=== PATIENT | male | born 1955 | race Caucasian/White ===

== ENCOUNTER 2022-09-09 12:34 | Outpatient (CLI) | payer OTHER, MEDICAID | END 2022-09-09 12:35 | disposition home or self-care (01) | LOC: CSHCT 12:34 | PROVIDERS: ATTEND Psychiatry & Neurology Neurology | DX: R25.1 Tremor, unspecified (principal) | CPT/HCPCS: 70450 ==

== ENCOUNTER 2022-11-02 12:41 | Outpatient (CLI) | payer OTHER, MEDICAID | END 2022-11-02 12:42 | disposition home or self-care (01) | LOC: CSHCP 12:41 | PROVIDERS: ATTEND Internal Medicine | DX: J44.9 Chronic obstructive pulmonary disease, unspecified (principal) | CPT/HCPCS: 94060; 94726; 94729; 94760 ==

== ENCOUNTER 2024-10-04 16:00 | Inpatient (IN) | payer OTHER, MEDICAID ==
[2024-10-04] MEDS ORDERED: Ipratropium/Albuterol 3 ML NEB ONE ×2 (17:12→19:50)
[2024-10-04] MEDS ORDERED: methylPREDNISolone Sod Succ/PF 125 MG/2 ML VIAL ONE (17:13)
[2024-10-04] MEDS ORDERED: Magnesium 2 GM/50 ML BAG (IN WATER) ONE (17:13)
[2024-10-04 17:34] LABS: ALT (SGPT) 26 U/L (Less than 45); AST (SGOT) 27 U/L (11-34); Albumin 4.2 g/dL (3.1-4.5); Alkaline Phosphatase 85 U/L (40-110); Anion Gap 12 mmol/L (10-20); BUN (Urea Nitrogen) 17 mg/dL (8.4-25.7); Bilirubin, Total 0.8 mg/dL (0.3-1.2); Calc. Creatinine Clearance 0 mL/min (70-130); Calcium 8.8 mg/dL (7.8-10.44); Carbon Dioxide 32 mmol/L (23-31); Chloride 96 mmol/L (98-107); Estimated GFR 77; Globulin 3.6 g/dL (2.4-3.5); Glucose 98 mg/dL (80-115); Potassium 4.4 mmol/L (3.5-5.1); Protein, Total 7.8 g/dL (5.8-8.1); Sodium 136 mmol/L (136-145)
[2024-10-04 17:42] LABS: Troponin I Less than 0.010 ng/mL (< 0.028)
[2024-10-04 18:10] LABS: #Basophils 0.06 10x3/uL (0.0-0.2); #Eosinophils 0.16 10x3/uL (0.0-0.5); #Monocytes 1.06 10x3/uL (0.0-1.1); %Basophils 0.6 % (0.0-2.0); %Eosinophils 1.7 % (0.0-6.0); %Monocytes 11.1 % (0.0-10.0); %Neutrophils 71.3 % (40.0-75.0); Hematocrit 38.4 % (38.8-50.0); Hemoglobin 12.8 g/dL (13.5-17.5); Mean Corpuscular HGB CONC 33.3 g/dL (32.0-36.0); Mean Corpuscular Hemoglobin 31.1 pg (27.0-33.0); Mean Corpuscular Volume 93.2 fL (81.2-95.1); Mean Platelet Volume 9.9 fL (7.4-10.4); Platelet Count 246 10x3/uL (150-450); RBC Distribution Width 12.5 % (11.5-14.5); Red Blood Cell (RBC) Count 4.12 10x6/uL (4.32-5.72); White Blood Cell (WBC) Count 9.54 10x3/uL (3.5-10.5)
[2024-10-04] MEDS ORDERED: Azithromycin 250 MG TAB ONE (19:48)
[2024-10-04] MEDS ORDERED: Naloxegol 12.5 MG TAB PO PRN (21:53)
[2024-10-04 22:02] VITALS: BMI 30.8
[2024-10-04] MEDS: Tamsulosin HCl 0.4 MG CAP PO SCH (22:58)
[2024-10-04] MEDS: Famotidine 20 MG TAB PO PRN (22:59)
[2024-10-04] MEDS: Zolpidem Tartrate 5 MG TAB PO PRN (22:59)
[2024-10-04] MEDS: guaiFENesin ER 600 MG TAB PO SCH (22:59)
[2024-10-04] MEDS: Enoxaparin 40 MG (0.4 mL) SYRINGE SC SCH (22:59)
[2024-10-04] MEDS: Arformoterol 15 MCG/2 ML NEB NEB SCH (23:00)
[2024-10-04] MEDS: Amlodipine 10 MG TAB PO SCH (23:00)
[2024-10-04] MEDS: Ipratropium/Albuterol 3 ML NEB NEB SCH (23:00)
[2024-10-04] MEDS: Lisinopril 20 MG TAB PO SCH (23:00)
[2024-10-04] MEDS: cefTRIAXone\\ROCEPHIN 2 GM in Sodium Chloride 0.9% 100 ML IVPB SCH (23:00)
[2024-10-04] MEDS: Fluticasone Propionate Nasal Spray 16 gm Bottle NASAL SCH (23:01)
[2024-10-05] MEDS ORDERED: Ipratropium Bromide 2.5 ml Neb NEB SCH (01:00)
[2024-10-05] MEDS: Gabapentin 400 MG CAP PO SCH (05:06)
[2024-10-05] MEDS: HYDROcodone/Acetaminophen 10/325 mg Tablet PO SCH (05:06)
[2024-10-05 05:08] LABS: #Basophils Less than 0.03 10x3/uL (0.0-0.2); #Eosinophils Less than 0.03 10x3/uL (0.0-0.5); #Monocytes 0.15 10x3/uL (0.0-1.1); #Neutrophils 8.11 10x3/uL (1.5-8.4); %Basophils 0.2 % (0.0-2.0); %Lymphocytes 6.6 % (18.0-47.0); %Monocytes 1.7 % (0.0-10.0); %Neutrophils 90.9 % (40.0-75.0); Hematocrit 39.7 % (38.8-50.0); Hemoglobin 12.7 g/dL (13.5-17.5); Mean Corpuscular Hemoglobin 29.4 pg (27.0-33.0); Mean Corpuscular Volume 91.9 fL (81.2-95.1); Mean Platelet Volume 9.4 fL (7.4-10.4); Platelet Count 234 10x3/uL (150-450); RBC Distribution Width 12.1 % (11.5-14.5); Red Blood Cell (RBC) Count 4.32 10x6/uL (4.32-5.72); White Blood Cell (WBC) Count 8.92 10x3/uL (3.5-10.5)
[2024-10-05 05:27] LABS: Anion Gap 14 mmol/L (10-20); BUN (Urea Nitrogen) 19 mg/dL (8.4-25.7); Calc. Creatinine Clearance 97 mL/min (70-130); Calcium 9.2 mg/dL (7.8-10.44); Carbon Dioxide 32 mmol/L (23-31); Chloride 98 mmol/L (98-107); Estimated GFR 91; Glucose 167 mg/dL (80-115); Magnesium 2.4 mg/dL (1.6-2.6); Potassium 4.5 mmol/L (3.5-5.1); Sodium 139 mmol/L (136-145)
[2024-10-05] MEDS: Budesonide 0.5 MG/2 ML NEB INH SCH (06:57)
[2024-10-05] MEDS: Arformoterol 15 MCG/2 ML NEB NEB SCH (06:58)
[2024-10-05] MEDS: predniSONE 20 MG TAB PO SCH ×2 (08:17→15:10)
[2024-10-05] MEDS: guaiFENesin ER 600 MG TAB PO SCH (08:17)
[2024-10-05] MEDS ORDERED: Gabapentin 400 MG CAP PO SCH (09:00)
[2024-10-05] MEDS ORDERED: Amlodipine 10 MG TAB PO SCH (09:00)
[2024-10-05] MEDS ORDERED: Tamsulosin HCl 0.4 MG CAP PO SCH (09:00)
[2024-10-05] MEDS: Ipratropium/Albuterol 3 ML NEB ONE (14:41)
[2024-10-05] MEDS: Azithromycin 500 MG in Sodium Chloride 0.9% 250 ML 250 ML IVPB SCH (20:08)
[2024-10-05] MEDS: Lisinopril 20 MG TAB PO SCH (21:54)
[2024-10-05] MEDS: Tamsulosin HCl 0.4 MG CAP PO SCH (21:54)
[2024-10-05] MEDS: Amlodipine 10 MG TAB PO SCH (21:54)
[2024-10-05] MEDS: Fluticasone Propionate Nasal Spray 16 gm Bottle NASAL SCH (21:58)
[2024-10-05] MEDS: ROFLUMILAST 500 MCG PO SCH (22:14)
[2024-10-06] MEDS: Cyclobenzaprine 10 MG TAB PO PRN (07:26)
[2024-10-06] MEDS: Enoxaparin 40 MG (0.4 mL) SYRINGE SC SCH (08:48)
[2024-10-06] MEDS ORDERED: ROFLUMILAST 500 MCG PO SCH (09:00)
[2024-10-07] MEDS: predniSONE 20 MG TAB PO SCH (09:26)
[2024-10-07 12:30] VITALS: BP 122/81; TEMP 98
== END 2024-10-07 12:54 | disposition home or self-care (01) | DRG 189 ==
LOC: CSHERS 16:00 → CSHTELE 21:45
PROVIDERS: ADMIT Family Medicine; ATTEND Family Medicine
DX: J96.21 Acute and chronic respiratory failure with hypoxia (principal); J44.1 Chronic obstructive pulmonary disease with (acute) exacerbation; N40.0 Benign prostatic hyperplasia without lower urinary tract symptoms; Z99.81 Dependence on supplemental oxygen; I10 Essential (primary) hypertension; Z79.899 Other long term (current) drug therapy; Z88.8 Allergy status to other drugs, medicaments and biological substances
CPT/HCPCS: 36415; 71045; 80048; 80053; 83735; 83880; 84145; 84484; 85025; 87428; 93005; 94640; 94760; 94762; J0456; J0696; J1650; J2919; J3475; J7050; J7512; J7620; J7626